=== PATIENT | female | born 1990 | race African-American/Black ===

== ENCOUNTER 2016-06-06 17:48 | Emergency (ER) | payer OTHER ==
[~2016-06-06] VITALS: Ht 154.9 cm; Wt 59.0 kg
[2016-06-06] MEDS ORDERED: ONDANSETRON HCL4 M2 PO (18:19)
[2016-06-06] MEDS ORDERED: AMOXICILLIN 50500 MG PO (18:21)
[2016-06-06 19:02] LABS: URINE BLOOD 2+ (Negative); URINE COLOR YELLOW; URINE GLUCOSE-RANDOM* NEGATIVE (Negative); URINE KETONES TRACE (Negative); URINE LEUKOCYTES-REFLEX NEGATIVE (Negative); URINE PROTEIN (DIPSTICK) TRACE (Negative); URINE SPECIFIC GRAVITY >= 1.030 (1.003-1.035); URINE UROBILINOGEN 0.2 E.U./dl (0.2-1.0)
[2016-06-06 19:06] LABS: ABSOLUTE NEUTROPHILS 3.2 thou/uL (1.4-8.2); BASOPHILS 0.7 % (0.0-2.0); EOSINOPHILS 0.7 % (0.0-3.0); HEMOGLOBIN 12.8 gm/dL (12.0-15.0); LYMPHOCYTES 47.6 % (24.0-44.0); MCHC 34.5 % (28.0-37.0); MCV 86.9 fL (80.0-100.0); MONOCYTES 4.5 % (1.0-8.0); PLATELET COUNT 232 thou/uL (150-400); POLYS 46.5 % (36.0-66.0); RBC 4.25 mil/uL (4.20-5.00); RDW 13.1 % (10.5-14.5); WBC 6.9 thou/uL (4.0-11.0)
[2016-06-06 19:07] LABS: MANUAL DIFF NO
[2016-06-06 19:10] LABS: ICTOTEST (BILI CONFIRMATORY) Negative (Negative); URINE BILIRUBIN NEGATIVE (Negative)
[2016-06-06 19:11] LABS: CASTS None Seen /LPF (None Seen); CRYSTALS None Seen /LPF (None Seen); SQUAMOUS 4-10 Moderate /LPF (0-3)
[2016-06-06 19:12] LABS: URINE RBC 0-2 Rare /HPF (0-2); URINE WBC-REFLEX 0-5 Rare /HPF (0-5)
[2016-06-06 19:13] LABS: CALCIUM 8.7 mg/dL (8.5-10.1); CREATININE 0.9 mg/dL (0.6-1.3); POTASSIUM 3.6 mmol/L (3.5-5.1)
[2016-06-06 19:20] LABS: ALBUMIN 3.1 g/dL (3.4-5.0); TOTAL BILIRUBIN 0.3 mg/dL (<0.1-1.0); TOTAL PROTEIN 7.1 g/dL (6.4-8.2)
[2016-06-06 20:04] VITALS: BP 110/62
[2016-06-06] MEDS ORDERED: MOBIC15 MG PO (20:09)
== END 2016-06-06 20:04 | disposition home or self-care (01) ==
LOC: ER 17:48
PROVIDERS: Physician Assistant
DX: R10.11 Right upper quadrant pain (principal); Z88.5 Allergy status to narcotic agent